=== PATIENT | male | born 2000 | race Caucasian/White ===

== ENCOUNTER 2024-10-27 09:32 | Emergency (ER) | payer OTHER ==
[~2024-10-27] VITALS: Ht 188 cm; Wt 103.9 kg
[2024-10-27] MEDS ORDERED: ACET-907 PO (09:39)
[2024-10-27] MEDS ORDERED: AMOX500C PO (10:32)
[2024-10-27 10:44] VITALS: BP 131/76; TEMP 97.2; O2SAT 99
== END 2024-10-27 10:47 | disposition home or self-care (01) ==
LOC: M ED 10:17
DX: J02.9 Acute pharyngitis, unspecified (principal)